=== PATIENT | male | born 1985 | race Caucasian/White ===

== ENCOUNTER 2017-10-29 19:09 | Emergency (ER) | payer MEDICAID ==
[2017-10-29] MEDS: IBUPROFEN 600 MG TAB PO (21:21)
[2017-10-29] MEDS: ALBUTEROL/IPRATROPIUM (NEB) 3 ML AMP HHN (21:24)
== END 2017-10-29 23:15 | disposition home or self-care (01) ==
LOC: FTE 19:09
DX: J20.9 Acute bronchitis, unspecified (principal)
CPT/HCPCS: 94664; 99284